=== PATIENT | female | born 1980 | race Caucasian/White ===

== ENCOUNTER 2016-05-31 00:09 | Emergency (ER) | payer OTHER ==
[2016-05-31 00:19] VITALS: BP 145/98
[2016-05-31] MEDS ORDERED: HYDROcodone/ACETAMIN 5-325 MG* 1 TAB PO ONE ×3 (00:57→01:18)
--- NOTE | 2016-05-31 01:05 | ED ---
Throat Pain/Nasal Congestion - HPI Summary HPI Summary: 35 female presents with complaints of dental pain that began approximately 1 week ago. Patient has a history of dental issues and poor dental hygiene. She has been taking increasing amounts of ibuprofen over the past week and has not had much relief. She tried calling her dentist today however was unable to go because she had a family emergency. She is calling the emergency line tomorrow and will be seen tomorrow or Thursday by dentist. Denies fever/chills, difficulty breathing, redness, swelling and discharge. - History of Current Complaint Chief Complaint: EDDentalPain Time Seen by Provider: 05/31/16 00:28 Hx Obtained From: Patient Onset/Duration: Sudden Onset, Lasting Weeks Severity: Severe - Allergies/Home Medications Allergies/Adverse Reactions: Allergies Allergy/AdvReac Type Severity Reaction Status Date / Time BEE STINGS Allergy Severe Hives Uncoded 12/20/13 08:21 PMH/Surg Hx/FS Hx/Imm Hx Endocrine/Hematology History: Denies: Hx Diabetes, Hx Thyroid Disease Cardiovascular History: Denies: Hx Hypertension Respiratory History: Denies: Hx Asthma, Hx Chronic Obstructive Pulmonary Disease (COPD) GI History: Denies: Hx Ulcer - Surgical History Surgery Procedure, Year, and Place: tonsils; colonoscopy. tonsilectomy Infectious Disease History: No Infectious Disease History: Denies: Hx Hepatitis, Hx Human Immunodeficiency Virus (HIV), History Other Infectious Disease, Traveled Outside the [place] in Last 30 Days - Family History Known Family History: Positive: None - Social History Alcohol Use: Rare Substance Use Type: Reports: None Smoking Status (MU): Never Smoked Tobacco Review of Systems Constitutional: Negative Eyes: Negative Positive: Dental Pain Cardiovascular: Negative Respiratory: Negative Skin: Negative Neurological: Negative All Other Systems Reviewed And Are Negative: Yes Physical Exam Triage Information Reviewed: Yes Vital Signs On Initial Exam: Initial Vitals Temp Pulse Resp BP Pulse Ox 97.8 F 61 18 145/98 99 05/31/16 00:13 05/31/16 00:13 05/31/16 00:13 05/31/16 00:13 05/31/16 00:13 Vital Signs Reviewed: Yes Appearance: Positive: Well-Appearing, Well-Nourished, Pain Distress - mild, holding left cheek Skin: Positive: Warm, Skin Color Reflects Adequate Perfusion, Dry Head/Face: Positive: Normal Head/Face Inspection Eyes: Positive: Conjunctiva Clear ENT: Positive: Hearing grossly normal, Pharynx normal, TMs normal Dental: Positive: Gross Decay/Caries @, Dental Fracture @, Other - appears to be an impacted wisdom tooth causing pain upper left. Negative: Percussion Tenderness @, Cervical Lymphadenopathy Neck: Positive: Supple, Nontender, No Lymphadenopathy Respiratory/Lung Sounds: Positive: Clear to Auscultation, Breath Sounds Present Cardiovascular: Positive: Normal, RRR, Pulses are Symmetrical in both Upper and Lower Extremities Neurological: Positive: Alert, Oriented to Person Place, Time Psychiatric: Positive: Normal Diagnostics - Vital Signs Vital Signs Temp Pulse Resp BP Pulse Ox 05/31/16 00:13 97.8 F 61 18 145/98 99 - Laboratory Lab Statement: Any lab studies that have been ordered have been reviewed, and results considered in the medical decision making process. EENT Course/Dx - Course Course Of Treatment: patient was given "fang-cane" topical anesthetic to apply to area of pain. she did get relief. will be given one to take home. also given norco with some to take home for pain until she is seen by dentist. she has not had any relief from OTC measures and is afraid it will continued use will effect her stomach. no sign of infection or abscess at this time therefore no need for antibiotics. patient does not appear to be a drug seeker. istop reference # #: [id number] - Differential Diagnoses Differential Diagnoses: Dental Abscess, Dental Caries, Fractured Tooth - Diagnoses Provider Diagnoses: Pain, dental, Impacted tooth Discharge - Discharge Plan Condition: Stable Disposition: HOME Patient Education Materials: Toothache (ED) Additional Instructions: Take medication as directed for pain. Use "Fang-cane" topical anesthetic to help soothe pain once daily. Be sure to dry the area of saliva before using. Make an appointment with your dentist to have problem fixed. If symptoms worsen or new symptoms develop such as redness, swelling, fever/chills please seek medical attention promptly and see your dentist.
== END 2016-05-31 01:43 | disposition home or self-care (01) ==
LOC: ED 00:09 → MERGE 00:09 → ED 01:43
DX: K08.89 Other specified disorders of teeth and supporting structures (principal); K01.1 Impacted teeth
CPT/HCPCS: 99282

== ENCOUNTER 2017-05-01 11:25 | Emergency (ER) | payer BC, OTHER ==
[2017-05-01 15:22] VITALS: BP 133/92
--- NOTE | 2017-05-01 15:31 | UC ---
Respiratory Complaint HPI - HPI Summary HPI Summary: c/o URI symptoms for a week, thinks she was infected with RSV diagnosed in her child. States she started having sharp pain on left side of face with green discharge and fever, continues with post nasal drip. - History of Current Complaint Chief Complaint: UCRespiratory Stated Complaint: SINUS ISSUE Time Seen by Provider: 05/01/17 15:22 Hx Obtained From: Patient Hx Last Menstrual Period: 05/01/2017 ?: No Onset/Duration: Gradual Onset, Lasting Days Timing: Constant Severity Initially: Mild Severity Currently: Moderate Pain Intensity: 3 Character: Cough: Nonproductive Aggravating Factors: Nothing Alleviating Factors: Nothing Associated Signs And Symptoms: Positive: Nasal Congestion, Sinus Discomfort - Risk Factors Pulmonary Embolism Risk Factors: Negative Cardiac Risk Factors: Negative Pseudomonas Risk Factors: Negative Tuberculosis Risk Factors: Negative - Allergies/Home Medications Allergies/Adverse Reactions: Allergies Allergy/AdvReac Type Severity Reaction Status Date / Time amoxicillin [From Augmentin] Allergy Vomiting Verified 05/01/17 15:13 clavulanic acid Allergy Vomiting Verified 05/01/17 15:13 [From Augmentin] BEE STINGS Allergy Severe Hives Uncoded 05/01/17 15:13 Home Medications: Home Medications Copper (Iud) [Paragard IUD] 1 unit IU DAILY 05/01/17 [History Confirmed 05/01/17 ] Loratadine & Pseudoephedrine [Claritin-D 12 Hour] 1 tab PO BID PRN 05/01/17 [ History Confirmed 05/01/17] PMH/Surg Hx/FS Hx/Imm Hx Previously Healthy: Yes - Surgical History Surgical History: Yes Surgery Procedure, Year, and Place: colonoscopy. tonsilectomy. precancerous mole removal x2 - Family History Known Family History: Positive: None - Social History Alcohol Use: Rare Substance Use Type: None Smoking Status (MU): Never Smoked Tobacco - Immunization History Most Recent Influenza Vaccination: dec 2012 Review of Systems Constitutional: Fever ENT: Sinus Congestion, Sinus Pain/Tenderness All Other Systems Reviewed And Are Negative: Yes Physical Exam Triage Information Reviewed: Yes Appearance: Well-Appearing Vital Signs: Initial Vital Signs Temp 99.1 F 05/01/17 15:16 Pulse 91 05/01/17 15:16 Resp 18 05/01/17 15:16 BP 133/92 05/01/17 15:16 Pulse Ox 98 05/01/17 15:16 Vital Signs Reviewed: Yes Eye Exam: Normal ENT: Positive: Hearing grossly normal, Pharynx normal, Nasal congestion, TMs normal, Sinus tenderness Dental Exam: Normal Neck exam: Normal Respiratory Exam: Normal Cardiovascular Exam: Normal UC Diagnostic Evaluation - Laboratory O2 Sat by Pulse Oximetry: 98 Respiratory Course/Dx - Course Course Of Treatment: start antibiotics as prescribed, fluid intake, nasal toileting with NS spray/solution - Differential Dx/Diagnosis Provider Diagnoses: acute frontal and maxillary sinusitis left side Discharge - Discharge Plan Condition: Stable Disposition: HOME Patient Education Materials: Sinusitis (ED) Referrals: Nydia Poon MD [Primary Care Provider] -
== END 2017-05-01 15:48 | disposition home or self-care (01) ==
LOC: UCEAST 11:25
DX: J01.00 Acute maxillary sinusitis, unspecified (principal); J01.10 Acute frontal sinusitis, unspecified
CPT/HCPCS: 99212; G0463

== ENCOUNTER 2017-06-02 06:40 | Day surgery (SDC) | payer BC ==
--- NOTE | 2017-05-27 18:45 | HP ---
PREOPERATIVE HISTORY AND PHYSICAL: DATE OF SURGERY/ADMISSION: 06/02/17 DATE OF OFFICE VISIT/ENCOUNTER: 05/13/17 ATTENDING SURGEON: Karen Grimaldo MD * (DICTATED BY MELO VALENTIN) PROCEDURE: Excision ganglion cyst, left wrist. CHIEF COMPLAINT: Cyst, left wrist. HISTORY OF PRESENT ILLNESS: This is a 36-year-old female who complains of a painful mass on the volar radial aspect of her left wrist that has been present for about a year or so. She saw a doctor in [facility], who recommended she headed with a book, so she has done that several times, but it keeps coming back. She rates her pain at this point as 7/10. She has a 7-month-old baby. She is fostering and she says her wrist is painful and inflamed. It is very difficult to pick the baby up. She is interested in having the mass surgically removed for more permanent solution to this problem. PAST MEDICAL HISTORY: 1. Sinusitis. 2. Anxiety. 3. History of recurrent kidney infections. 4. Back pain. PAST SURGICAL HISTORY: 1. Tonsillectomy. 2. Removal of a precancerous mole x2. CURRENT MEDICATIONS: 1. Alprazolam 0.5 mg 1 tab t.i.d. p.r.n. anxiety. 2. Fluticasone propionate 50 mcg act 2 sprays each nostril daily. 3. Multivitamin. 4. Tylenol Extra Strength 325 mg 2 tabs p.r.n. 5. Vitamin C as needed. 6. Paragard intrauterine copper contraceptive. ALLERGIES: CEFTIN and AUGMENTIN cause vomiting and diarrhea and LATEX. FAMILY MEDICAL HISTORY: Noncontributory. 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 She denies tobacco use and illicit drug use. She drinks alcohol on rare occasion. REVIEW OF SYSTEMS: General: Positive for weight gain and fatigue. Negative for fevers, chills, or night sweats. No known anesthesia problems. HEENT: Negative for headache, lightheadedness, or syncopal episodes. Integumentary: Negative for abrasions, lesions, or open wounds. Cardiothoracic: Negative for hypertension, chest pain, palpitations, or edema. Pulmonary: Positive for cough, sore throat, runny nose. GI: Negative for nausea, vomiting, diarrhea, constipation, or GERD. : Negative for nocturia, urinary frequency, urgency, history of UTIs, or kidney problems. Musculoskeletal: Positive for current complaint and chronic back pain. Neurological: Positive for anxiety. Negative for paresthesias, numbness, history of seizure, stroke, or epilepsy. Endocrine : Negative for diabetes and thyroid issues. Hematologic: Negative for easy bruising, anemia, excessive bleeding, history of DVT. Infectious Disease: Negative for history of MRSA, hepatitis C, HIV. PHYSICAL EXAMINATION GENERAL: Well-developed, well-nourished 36-year-old female, in no acute distress. VITAL SIGNS: Height 5 feet 4-3/4 inches, weight 167 pounds, pulse rate 80, blood pressure 118/62. HEENT: Normocephalic, atraumatic. Pupils are equal, round and reactive to light and accommodation. Extraocular movements are intact. NECK: Supple. No palpable lymph nodes. Throat is clear. CARDIOVASCULAR: Regular rate and rhythm. S1, S2. No murmurs, rubs, or gallops. No edema. PULMONARY: Lungs are clear to auscultation bilaterally. No wheezes, rales, or rhonchi. ABDOMEN: Positive bowel sounds, soft, nontender. NEUROLOGIC: Alert and oriented x3. Cranial nerves II through XII are intact. Sensation is intact to light touch. MUSCULOSKELETAL: On exam of her left wrist, there is a very small cystic mass on the volar radial aspect of the wrist. It is not pulsatile. She has good range of motion of her wrist in flexion and extension. She has a negative Tinel 's. Besides of the cyst, she can make a full fist. Skin is intact. Neurovascular function is intact. IMAGING STUDIES: X-rays AP, lateral and oblique of left wrist appear normal. IMPRESSION: Left wrist volar radial ganglion. PLAN: The patient is scheduled to undergo an excision ganglion cyst of left wrist with Dr. Grimaldo on 06/02/17. She will return to the office 10 days postop for followup and suture removal. A prescription for Ultracet was e-scribed to the patient's pharmacy for postoperative pain management. MELO VALENTIN [id number]/[facility] #: [id number] [facility] HOSPITALAnabelle
[~2017-06-02 06:40] MED LIST: Buffered Lidocaine 0.9% SYRIN* 5 ML/SYR SYRINGE INTRADERM ONE; Famotidine IV* 10 MG/ML 2 ML (20 mg) IV ONE
[2017-06-02] MEDS ORDERED: Lidocaine 1% INJ* 10 MG/ML 30 ML SDV ONE (07:19)
[2017-06-02] MEDS ORDERED: Midazolam* 1 MG/ML 2 ML VIAL (2 MG) ONE ×2 (07:20→07:54)
[2017-06-02] MEDS ORDERED: fentaNYL* 50 MCG/ML 2 ML VIAL (100 MCG VIAL) ONE (07:20)
[2017-06-02] MEDS ORDERED: Ketorolac INJ* 30 MG/ML 1 ML VIAL ONE (07:38)
[2017-06-02] MEDS ORDERED: Lidocaine 2% PF * 5 ML VIAL ONE (07:38)
[2017-06-02] MEDS ORDERED: Propofol* 10 MG/ML 20 ML BTL IV PUSH ONE (07:38)
[2017-06-02] MEDS ORDERED: Ondansetron INJ* 2 MG/ML VIAL ONE (07:38)
[2017-06-02] MEDS ORDERED: Acetaminophen TAB* 325 MG PO PRN (08:08)
[2017-06-02] MEDS ORDERED: DiMENhydriNATE IV* 50 MG/ML VIAL IV PUSH PRN (08:08)
[2017-06-02 08:25] VITALS: BP 119/76
--- NOTE | 2017-06-03 06:31 | OP ---
DATE OF OPERATION: 06/02/17 FOR[facility]LY [facility] DATE OF : 84 SURGEON: Karen Grimaldo MD SLOPE RUNNER: MELO Valenzuela ANESTHESIA: Local MAC. PRE-OP DIAGNOSIS: Left wrist ganglion. POST-OP DIAGNOSIS: Left wrist ganglion. OPERATIVE PROCEDURE: Removal of left wrist ganglion. INDICATIONS: Clotilde is a 36-year-old female with a painful mass on the volar radial aspect of her left wrist, she presents for removal. ESTIMATED BLOOD LOSS: Zero. TOURNIQUET TIME: About 15 minutes. DESCRIPTION OF PROCEDURE: The patient was brought to the operating room, was given a sedation anesthetic and local infiltration of 10 cc of 1% plain lidocaine. The skin of her left hand and forearm was prepped and draped in the usual sterile fashion. Hand and forearm were exsanguinated and the tourniquet elevated to 250 mmHg. A chevron incision was made centered over the mass and we dissected bluntly through the subcutaneous tissue. The radial artery was located and retracted away from the ganglion cyst. The cyst was traced with its stalk down to the radiocarpal joint capsule and removed with a small portion of the joint capsule. The edges of the capsule were cauterized with the Bovie. Hemostasis was achieved and then the wound was irrigated and the skin edges reapproximated with 4-0 nylon suture. The wound was dressed with Xeroform, 4x4, Webril, and an Mt wrap. The patient tolerated the procedure well and was brought to the recovery room in good condition. [id number]/[facility] #: [id number] MTDAnabelle
== END 2017-06-02 08:50 | disposition home or self-care (01) ==
LOC: OREAST 06:40
PROVIDERS: ATTEND Orthopaedic Surgery
DX: M67.432 Ganglion, left wrist (principal)
CPT/HCPCS: 81025; 88304; J1885; J2250; J2405; J2704; J3010

== ENCOUNTER 2018-01-25 08:44 | Emergency (ER) | payer BC ==
[2018-01-25 08:58] VITALS: BP 131/85
--- NOTE | 2018-01-25 10:05 | UC ---
Throat Pain/Nasal Yobani HPI - HPI Summary HPI Summary: 37-year-old woman comes in with 3 week history of sinus pressure and green rhinorrhea. Chest is some blood in the rhinorrhea. She has had a dry cough mild sore throat. No complaint of any ear pain or wheezing. She has been taking [id number] medications help some but overall she's getting worse. Have a history of recurrent sinusitis and also environmental allergies. She's taking Claritin and that did not help. - History of Current Complaint Chief Complaint: UCRespiratory Stated Complaint: SINUS COMPLAINT Time Seen by Provider: 01/25/18 09:56 Hx Last Menstrual Period: 05/01/2017 Pain Intensity: 7 - Allergies/Home Medications Allergies/Adverse Reactions: Allergies Allergy/AdvReac Type Severity Reaction Status Date / Time amoxicillin [From Augmentin] Allergy Vomiting Verified 01/25/18 08:58 clavulanic acid Allergy Vomiting Verified 01/25/18 08:58 [From Augmentin] latex Allergy Rash Verified 01/25/18 08:58 BEE STINGS Allergy Severe Hives Uncoded 01/25/18 08:58 nuts Allergy lip Uncoded 01/25/18 08:58 swelling PMH/Surg Hx/FS Hx/Imm Hx Previously Healthy: Yes - Surgical History Surgical History: Yes Surgery Procedure, Year, and Place: [place]ilectomy[place] precancerous [place] removal x2 - Family History Known Family History: Positive: None Negative: Diabetes - Social History Alcohol Use: Occasionally Alcohol Amount: 1 q 2 weeks Substance Use Type: None Smoking Status (MU): Never Smoked Tobacco - Immunization History Most Recent Influenza Vaccination: dec 2012 Review of Systems Constitutional: Negative Skin: Negative Eyes: Negative ENT: Sore Throat, Nasal Discharge, Sinus Congestion, Sinus Pain/Tenderness Respiratory: Negative Cardiovascular: Negative Gastrointestinal: Negative Motor: Negative Neurovascular: Negative Musculoskeletal: Negative Neurological: Negative Psychological: Negative Is Patient Immunocompromised?: No All Other Systems Reviewed And Are Negative: Yes Physical Exam Triage Information Reviewed: Yes Appearance: No Pain Distress, Well-Nourished, Ill-Appearing - mild Vital Signs: Initial Vital Signs Temp 98.2 F 01/25/18 08:54 Pulse 104 01/25/18 08:54 Resp 18 01/25/18 08:54 BP 131/85 01/25/18 08:54 Pulse Ox 98 01/25/18 08:54 Vital Signs Reviewed: Yes Eye Exam: Normal Eyes: Positive: Conjunctiva Clear ENT: Positive: Pharyngeal erythema, Nasal congestion, Nasal drainage, TMs normal Neck exam: Normal Neck: Positive: Supple, Nontender Respiratory Exam: Normal Respiratory: Positive: Lungs clear, Normal breath sounds, No respiratory distress Cardiovascular Exam: Normal Cardiovascular: Positive: RRR Musculoskeletal Exam: Normal Musculoskeletal: Positive: Strength Intact, ROM Intact Neurological Exam: Normal Neurological: Positive: Alert Psychological Exam: Normal Psychological: Positive: Age Appropriate Behavior Skin Exam: Normal Throat Pain/Nasal Course/Dx - Course Course Of Treatment: Patient reports that quite often she gets yeast infection if she takes antibiotics therefore I prescribed her a dose of Diflucan. - Differential Dx/Diagnosis Provider Diagnoses: sinusitis Discharge - Sign-Out/Discharge Documenting (check all that apply): Patient Departure All imaging exams completed and their final reports reviewed: No Studies - Discharge Plan Condition: Stable Disposition: HOME Prescriptions: Amoxicillin PO (*) [Amoxicillin 875 MG (*)] 875 mg PO BID #20 tab Fluconazole [Diflucan] 150 mg PO ONCE PRN #1 tablet PRN Reason: Pain Patient Education Materials: Sinusitis (ED) Referrals: Nydia Poon MD [Primary Care Provider] - Additional Instructions: FOLLOW UP WITH YOUR DOCTOR IF NOT COMPLETELY IMPROVED. GET RECHECKED FOR ANY WORSENING OF YOUR CONDITION OR QUESTIONS OR CONCERNS. - Billing Disposition and Condition Condition: STABLE Disposition: Home
== END 2018-01-25 10:09 | disposition home or self-care (01) ==
LOC: UCEAST 08:44
DX: J32.9 Chronic sinusitis, unspecified (principal); Z88.0 Allergy status to penicillin; Z91.030 Bee allergy status; Z91.040 Latex allergy status; Z91.018 Allergy to other foods
CPT/HCPCS: 99212; G0463

== ENCOUNTER 2018-03-21 17:45 | Emergency (ER) | payer BC ==
[2018-03-21 18:00] VITALS: BP 136/87
--- NOTE | 2018-03-21 18:34 | UC ---
Throat Pain/Nasal Yobani HPI - HPI Summary HPI Summary: Patient was treated for a sinus infection last week but could not finish the amoxicillin due to allergic symptoms. She is having a lot of sinus pressure, thought she may of had a fever and Headache - History of Current Complaint Chief Complaint: UCGeneralIllness Stated Complaint: SINUS Hx Obtained From: Patient Hx Last Menstrual Period: 05/01/2017 ?: No Onset/Duration: Gradual Onset, Lasting Weeks Severity: Moderate Pain Intensity: 7 Associated Signs & Symptoms: Positive: Dysphagia, Hoarseness, Sinus Discomfort, Nasal Discharge, Fever - Allergies/Home Medications Allergies/Adverse Reactions: Allergies Allergy/AdvReac Type Severity Reaction Status Date / Time amoxicillin [From Augmentin] Allergy Vomiting Verified 03/21/18 18:00 clavulanic acid Allergy Vomiting Verified 03/21/18 18:00 [From Augmentin] latex Allergy Rash Verified 03/21/18 18:00 BEE STINGS Allergy Severe Hives Uncoded 03/21/18 18:00 nuts Allergy lip Uncoded 03/21/18 18:00 swelling PMH/Surg Hx/FS Hx/Imm Hx Previously Healthy: Yes - Surgical History Surgical History: Yes Surgery Procedure, Year, and Place: [place]ilectomy, 2004[place] precancerous [place] removal x2 - Family History Known Family History: Positive: None Negative: Diabetes - Social History Alcohol Use: Occasionally Alcohol Amount: 1 q 2 weeks Substance Use Type: None Smoking Status (MU): Never Smoked Tobacco - Immunization History Most Recent Influenza Vaccination: dec 2012 Review of Systems All Other Systems Reviewed And Are Negative: Yes Constitutional: Positive: Fever Skin: Positive: Negative Eyes: Positive: Negative ENT: Positive: Sore Throat, Ear Ache, Nasal Discharge, Sinus Congestion, Sinus Pain/Tenderness Respiratory: Positive: Cough Cardiovascular: Positive: Negative Gastrointestinal: Positive: Negative Genitourinary: Positive: Negative Motor: Positive: Negative Neurovascular: Positive: Negative Musculoskeletal: Positive: Negative Neurological: Positive: Negative Psychological: Positive: Negative Is Patient Immunocompromised?: No Physical Exam Triage Information Reviewed: Yes Appearance: Well-Appearing, Well-Nourished, Pain Distress Vital Signs: Initial Vital Signs Temp 97.8 F 03/21/18 17:56 Pulse 81 03/21/18 17:56 Resp 16 03/21/18 17:56 BP 136/87 03/21/18 17:56 Pulse Ox 99 03/21/18 17:56 Vital Signs Reviewed: Yes Eye Exam: Normal ENT: Positive: Pharyngeal erythema, TM bulging, TM dull Dental Exam: Normal Neck exam: Normal Neck: Positive: Supple, Nontender, No Lymphadenopathy Respiratory: Positive: Chest non-tender, Lungs clear, Normal breath sounds Cardiovascular: Positive: RRR, No Murmur, Pulses Normal Abdominal Exam: Normal Abdomen Description: Positive: Nontender, No Organomegaly, Soft Musculoskeletal Exam: Normal Neurological Exam: Normal Psychological Exam: Normal Skin Exam: Normal Throat Pain/Nasal Course/Dx - Course Course Of Treatment: hx obtained, exam performed ,meds reveiwed, changed ABX for sinusitis - Differential Dx/Diagnosis Differential Diagnosis/HQI/PQRI: Otitis Media, Pharyngitis, Sinusitis, URI Provider Diagnosis: Sinusitis Discharge - Sign-Out/Discharge Documenting (check all that apply): Patient Departure All imaging exams completed and their final reports reviewed: No Studies - Discharge Plan Condition: Stable Disposition: HOME Prescriptions: Azithromyxin JESUS (NF) [Z-Jesus (Zithromax) 250 mg tabs #6] 2 tab PO .TODAY, THEN 1 DAILY #6 tab Patient Education Materials: Sinusitis (ED) Referrals: Nydia Poon MD [Primary Care Provider] - Additional Instructions: 1. take the medication as prescribed 2. Increase fluid intake and get plenty of rest - Billing Disposition and Condition Condition: STABLE Disposition: Home - Attestation Statements Provider Attestation: I was available for consult. This patient was seen by the CYNDY. The patient was not presented to , seen by or examined by vt -Michael Oneal MD
== END 2018-03-21 18:31 | disposition home or self-care (01) ==
LOC: UCCORT 17:45
DX: J32.9 Chronic sinusitis, unspecified (principal); Z88.0 Allergy status to penicillin; Z88.8 Allergy status to other drugs, medicaments and biological substances
CPT/HCPCS: 99212; G0463

== ENCOUNTER 2018-05-27 09:07 | Emergency (ER) | payer OTHER ==
[2018-05-27 09:25] VITALS: BP 131/90
--- NOTE | 2018-07-20 14:28 | UC ---
Respiratory Complaint HPI - HPI Summary HPI Summary: cough for one week. assoc w/ facial pain. - History of Current Complaint Chief Complaint: UCGeneralIllness Stated Complaint: COUGH RESP ISSUE Time Seen by Provider: 05/27/18 10:04 Hx Obtained From: Patient Hx From Patient Unobtainable Due To: Extremis Hx Last Menstrual Period: "states last month" Onset/Duration: Gradual Onset Pain Intensity: 0 Pain Scale Used: 0-10 Numeric Character: Cough: Nonproductive - Allergies/Home Medications Allergies/Adverse Reactions: Allergies Allergy/AdvReac Type Severity Reaction Status Date / Time latex Allergy Rash Verified 05/27/18 09:18 amoxicillin [From Augmentin] AdvReac Diarrhea Verified 05/27/18 09:18 clavulanic acid AdvReac Diarrhea Verified 05/27/18 09:18 [From Augmentin] BEE STINGS Allergy Severe Hives Uncoded 05/27/18 09:18 nuts Allergy lip Uncoded 05/27/18 09:18 swelling Home Medications: Home Medications Multivit-Min/Iron Fum/Folic AC [Multi Vitamin and Mineral] 1 tab PO DAILY [History Confirmed 05/27/18] PMH/Surg Hx/FS Hx/Imm Hx - Additional Past Medical History Additional PMH: no chronic conditions - Surgical History Surgical History: Yes Surgery Procedure, Year, and Place: [place] precancerous mole removal x2. ganglion cyst removed L wrist 2017 - Family History Known Family History: Positive: None Negative: Diabetes - Social History Alcohol Use: Occasionally Alcohol Amount: 1 q 2 weeks Substance Use Type: None Smoking Status (MU): Never Smoked Tobacco - Immunization History Most Recent Influenza Vaccination: dec 2012 Review of Systems All Other Systems Reviewed And Are Negative: Yes Constitutional: Positive: Negative Skin: Negative: Rash ENT: Positive: Sinus Congestion, Sinus Pain/Tenderness. Negative: Sore Throat Respiratory: Positive: Cough. Negative: Shortness Of Breath Cardiovascular: Positive: Negative Gastrointestinal: Positive: Negative Physical Exam Triage Information Reviewed: Yes Appearance: Well-Appearing Vital Signs: Initial Vital Signs Temp 98.6 F 05/27/18 09:19 Pulse 87 05/27/18 09:19 Resp 18 05/27/18 09:19 BP 131/90 05/27/18 09:19 Pulse Ox 97 05/27/18 09:19 Vital Signs Reviewed: Yes Eyes: Positive: Conjunctiva Clear ENT: Positive: TMs normal. Negative: Sinus tenderness Neck: Positive: Supple Respiratory Exam: Normal Cardiovascular Exam: Normal Neurological: Positive: Alert Respiratory Course/Dx - Course Course Of Treatment: Viral sinusitis w/ assoc. URI/cough. Pt. insisted on antibx so obliged after discussing side effects. return if not improving. vitals good. - Differential Dx/Diagnosis Differential Diagnosis/HQI/PQRI: Bronchitis, Sinusitis Provider Diagnosis: Sinusitis Discharge - Sign-Out/Discharge Documenting (check all that apply): Patient Departure All imaging exams completed and their final reports reviewed: No Studies - Discharge Plan Condition: Good Disposition: HOME Prescriptions: DOXYcycline CAP(*) [DOXYcycline 100MG CAP(*)] 100 mg PO BID 7 Days #14 cap Patient Education Materials: Sinusitis (ED) Referrals: Nydia Poon MD [Primary Care Provider] - Additional Instructions: please follow up with your primary care if not improving. - Billing Disposition and Condition Condition: GOOD Disposition: Home - Attestation Statements Provider Attestation: I was available for consult. This patient was seen by the CYNDY. The patient was not presented to, seen by, or examined by me. -Tejinder
== END 2018-05-27 10:18 | disposition home or self-care (01) ==
LOC: UCEAST 09:07
DX: J32.9 Chronic sinusitis, unspecified (principal); Z88.0 Allergy status to penicillin; Z88.1 Allergy status to other antibiotic agents; Z91.030 Bee allergy status; Z91.040 Latex allergy status; Z91.018 Allergy to other foods
CPT/HCPCS: 99212; G0463

== ENCOUNTER 2018-07-24 13:53 | Emergency (ER) | payer OTHER ==
--- OUTSIDE RECORDS SUMMARY | 2018-07-24 14:11 | XMS REPORT | Continuity of Care Document ---
:1980 External Reference #:[id number] Author Name Aliyah Vázquez Care Team Providers Name Role Phone Nydia Poon MD Primary Care Physician Unavailable Payers Date Identification Numbers Payment Provider Subscriber Policy Number: [id number] Willem Sha Irizarrylaura PayID: [id number] [address] [place] [address] Expires: 2018 Policy Number: [id number] BS Naresh Doty PayID: [id number] [address] [address] [place] [address] Effective: 2012 Policy Number: [id number] Maria Esther Mabry Radu Soren Expires: 2012 PayID: [id number] [address] [place] [address] Advance Directives Description No Information Available Problems Active Problems Provider Date Abnormal weight gain Fatimah Palma M.D. Onset: 12/13/2013 Disorder of lipid metabolism Fatimah Palma M.D. Onset: 12/13/2013 Non-neoplastic nevus Fatimah Palma M.D. Onset: 12/13/2013 Anxiety state Nydia Poon M.D. 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 Tobacco Use Start: Unknown Never Smoked Cigarettes Tobacco Use Start: Unknown Never Smoked Cigars Tobacco Use Start: Unknown Never Smoked A Pipe Smoking Status Reviewed: 07/21/18 Never Smoked A Pipe Smokeless Tobacco Never Used Smokeless Tobacco ETOH Use Rarely consumes alcohol 3 or less a week Tobacco Use Start: Unknown Patient has never smoked Exercise Exercises regularly Type/Frequency Allergies, Adverse Reactions, Alerts Active Allergies Reaction Severity Comments Date Bee Sting Urticaria Severe 10/19/2012 Latex skin irritation Mild 07/17/2016 Ceftin fevers, vomiting Severe 07/17/2016 Augmentin Stomach distress Moderate 07/17/2016 Coconut Allergenic Extract 06/14/2018 Hazelnut Oil 06/14/2018 Sesame Seed Extract 06/14/2018 Cinnamon Oil, Bark 06/14/2018 Inactive Allergies NKDA 10/19/2012 Medications Active Medications SIG Qnty Indications Ordering Provider Date Loratadine 1 by mouth every Unknown 10mg Tablets day History Medications Fluticasone 2 puffs each 16gm Leonel Villa, 06/28/2018 - Propionate nostril daily M.D. Unknown 50mcg/Act Suspension Zithromax Azithromyxin Jesus 6tabs Unknown 03/21/2018 - 250mg (Nf) 05/17/2018 Tablets Amoxicillin Twice Daily 20tabs Unknown 01/25/2018 - 875mg 03/24/2018 Tablets Diflucan Once 1tabs Unknown 01/25/2018 - 150mg 05/17/2018 Tablets Lamar one tab by mouth 10tabs Karen 06/03/2017 - 5-325mg Tablets every 6 hours as Chanda Grimaldo 05/18/2018 needed pain Tramadol 1 tab by mouth 15tabs Karen 05/13/2017 - Hydrochloride/Acetam every 4-6 hours as Chanda Grimaldo 05/18/2018 inophen needed pain 37.5-325mg Tablets Azithromycin one tablet once 3tabs J01.90 Blaise Quiros NP 05/07/2017 - 500mg daily x 3 days 05/10/2017 Tablets Fluticasone 2 sprays each 16units J01.90 Blaise Quiros NP 05/07/2017 - Propionate nostril qd as Unknown 50mcg/Act needed Suspension Alprazolam 1 PO tid prn 30tabs Nydia 06/14/2015 - 0.5mg anxiety Chanda Poon 05/18/2018 Tablets Mirena Unknown 01/11/2014 - 20mcg/24HR IUD 12/24/2015 Alprazolam 1-2 by mouth every 20tabs Carol Linh, 06/06/2013 - 0.25mg 8 hours as needed N.P. 06/14/2015 Tablets Vit C as needed Unknown - Unknown Multi Complete daily Unknown - Unknown Chewable Paragard good for 12 years Unknown - Intrauterine Copper placed 05/17/2018 Contraceptive T380a june 07, 2015 T380a IUD Magnesium 1 daily Unknown - 30mg 05/12/2017 Tablets Tylenol Extra 2 by mouth as Unknown - Strength needed Unknown 325mg Tablets Amoxicillin take one tablet by J01.10 Unknown - 875mg mouth twice a day 03/20/2017 Tablets x's 10 days Azithromycin 2 tabs by mouth on Unknown - 250mg day 1; 1 tab by 03/27/2018 Tablets mouth every day on days 2-5 Medications Administered in Office Medication SIG Qnty Indications Ordering Provider Date PPD Injection Nurse Visit A 07/16/2018 PPD Injection Nurse Visit A 06/20/2016 Immunizations CPT Code Status Date Vaccine Lot # [id number] Given 07/16/2018 Tdap - Tetanus/Diptheria/Acellular Pertussis [id number] Given 03/20/2017 Influenza Virus Vaccine, Quadrivalent, Split, [id number] Preservative Free Vital Signs Date Vital Result Comment 07/21/2018 2:49pm Height 65 inches 5'5" Weight 165.00 lb Heart Rate 62 /min BP Systolic 118 mmHg BP Diastolic 76 mmHg Body Temperature 98.0 F Pain Level 0 BMI (Body Mass Index) 27.5 kg/m2 06/28/2018 3:06pm Height 65 inches 5'5" Weight 165.00 lb Heart Rate 72 /min BP Systolic Sitting 120 mmHg BP Diastolic Sitting 88 mmHg Respiratory Rate 16 /min BMI (Body Mass Index) 27.5 kg/m2 06/14/2018 2:55pm Height 65 inches 5'5" Weight 169.00 lb BP Systolic Sitting 118 mmHg BP Diastolic Sitting 74 mmHg Respiratory Rate 16 /min Pain Level 4 constant BMI (Body Mass Index) 28.1 kg/m2 05/18/2018 1:10pm Height 65 inches 5'5" Weight 169.50 lb Heart Rate 83 /min BP Systolic 121 mmHg BP Diastolic 72 mmHg Body Temperature 98.3 F O2 % BldC Oximetry 96 % BMI (Body Mass Index) 28.2 kg/m2 07/30/2017 8:09am Heart Rate 89 /min BP Systolic 108 mmHg BP Diastolic 70 mmHg Respiratory Rate 16 /min Body Temperature 97.8 F Pain Level 2 07/09/2017 9:15am Heart Rate 80 /min BP Systolic 122 mmHg BP Diastolic 80 mmHg Respiratory Rate 16 /min Body Temperature 97.1 F 06/11/2017 9:04am Height 64.75 inches 5'4.75" Heart Rate 83 /min BP Systolic 124 mmHg BP Diastolic 80 mmHg Respiratory Rate 16 /min Body Temperature 97.0 F Pain Level 3 05/13/2017 1:14pm Height 64.75 inches 5'4.75" Weight 167.00 lb Heart Rate 80 /min BP Systolic Sitting 118 mmHg LA lg cuff BP Diastolic Sitting 62 mmHg LA lg cuff Pain Level 0 BMI (Body Mass Index) 28.0 kg/m2 05/07/2017 2:06pm Weight 167.00 lb Heart Rate 91 /min BP Systolic 126 mmHg BP Diastolic 86 mmHg Body Temperature 97.7 F O2 % BldC Oximetry 97 % 03/20/2017 3:30pm Height 65 inches 5'5" Weight 163.00 lb Heart Rate 94 /min BP Systolic 130 mmHg BP Diastolic 80 mmHg Body Temperature 97.9 F O2 % BldC Oximetry 97 % BMI (Body Mass Index) 27.1 kg/m2 Waist Circumference 38 07/17/2016 12:46pm Weight 155.38 lb Heart Rate 95 /min BP Systolic Sitting 110 mmHg BP Diastolic Sitting 90 mmHg Body Temperature 100.3 F O2 % BldC Oximetry 97 % 06/19/2016 4:41pm Weight 157.00 lb Heart Rate 61 /min BP Systolic Sitting 100 mmHg BP Diastolic Sitting 72 mmHg Body Temperature 98.3 F O2 % BldC Oximetry 97 % 12/24/2015 10:50am Height 64.5 inches 5'4.50" Weight 160.00 lb Heart Rate 78 /min BP Systolic 120 mmHg BP Diastolic 94 mmHg BP Systolic Sitting 134 mmHg BP Diastolic Sitting 104 mmHg O2 % BldC Oximetry 98 % BMI (Body Mass Index) 27.0 kg/m2 06/14/2015 2:02pm Height 65.25 inches 5'5.25" Weight 162.00 lb Heart Rate 82 /min BP Systolic Sitting 120 mmHg BP Diastolic Sitting 76 mmHg Respiratory Rate 16 /min Body Temperature 98.0 F O2 % BldC Oximetry 98 % BMI (Body Mass Index) 26.7 kg/m2 12/14/2014 1:05pm Height 65.25 inches 5'5.25" Weight 158.00 lb Heart Rate 69 /min BP Systolic Sitting 128 mmHg BP Diastolic Sitting 88 mmHg Body Temperature 98.5 F O2 % BldC Oximetry 98 % BMI (Body Mass Index) 26.1 kg/m2 11/25/2013 3:05pm Height 65.25 inches 5'5.25" Weight 169.25 lb Heart Rate 68 /min BP Systolic Sitting 124 mmHg BP Diastolic Sitting 80 mmHg Body Temperature 98.2 F BMI (Body Mass Index) 27.9 kg/m2 10/19/2012 1:00pm Height 65.5 inches 5'5.50" Weight 166.00 lb Heart Rate 76 /min BP Systolic Sitting 118 mmHg BP Diastolic Sitting 80 mmHg BMI (Body Mass Index) 27.2 kg/m2 Results Test Date Facility Test Result H/L Range Note Lipid Profile 05/12/2018 [facility] Triglycerides 246 mg/dL 1 (Trig/Chol/HDL) [address] [place] [address] [phone] Cholesterol 177 mg/dL 2 HDL Cholesterol 49.7 mg/dL 3 LDL Cholesterol 78 mg/dL 4 Laboratory test 05/12/2018 [facility] Glucose 83 mg/dL N 70- [address] [place] [address] [phone] Laboratory test 06/02/2017 [facility] Surgical SEE RESULT 5 , [address] [address] [phone] Laboratory test 03/18/2017 [facility] Glucose 76 mg/dL N 70- [address] [place] [address] [phone] Lipid Profile 03/18/2017 [facility] Triglycerides 140 mg/dL 7 (Trig/Chol/HDL) [address] [place], [place] [id number] [phone] Cholesterol 180 mg/dL 8 HDL Cholesterol 45.7 mg/dL 9 LDL Cholesterol 106 mg/dL 10 Ua Routine 06/19/2016 [employer] [facility] Ua Specific [place] 1.020 Ua PH 6 Ua Color yellow Ua Appera clear Ua WBC trace Ua Protein neg Ua Glucose neg Ua Ketones neg Ua Bilirubin neg Ua Urobilinogen normal Ua Nitrite neg Ua Occult Blood neg Lipid Profile 12/12/2015 [facility] Triglycerides 117 mg/dL N 11, 12 (Trig/Chol/HDL) [address] [place] [address] [phone] Cholesterol 178 mg/dL N 13 HDL Cholesterol 43.9 mg/dL N 14 LDL Cholesterol 111 mg/dL N 15 Laboratory test 12/12/2015 [facility] Glucose 85 mg/dL N 70- 100 16 finding [address] [place] [address] [phone] Lipid Profile 11/13/2014 [facility] Triglycerides 128 mg/dL N 17 (Trig/Chol/HDL) [address] [place] [address] [phone] Cholesterol 137 mg/dL N 18 HDL Cholesterol 35.8 mg/dL N 19 LDL Cholesterol 76 mg/dL N 20 Comp Metabolic Panel 11/13/2014 [facility] Sodium 138 mmol/L N 133-145 [address] [place] [address] [phone] Potassium 3.9 mmol/L N 3.5-5.0 Chloride 104 mmol/L N 101-111 Co2 Carbon Dioxide 27 mmol/L N 22-32 Anion Gap 7 mmol/L N 2-11 Glucose 88 mg/dL N 70-100 Blood Urea Nitrogen 9 mg/dL N 6-24 Creatinine 0.92 mg/dL N 0.51-0.95 BUN/Creatinine Ratio 9.8 N 8-20 Calcium 9.2 mg/dL N 8.6-10.3 Total Protein 6.8 g/dL N 6.4-8.9 Albumin 4.3 g/dL N 3.2-5.2 Globulin 2.5 g/dL N 2-4 Albumin/Globulin Ratio 1.7 N 1-3 Total Bilirubin 0.50 mg/dL N 0.2-1.0 Alkaline Phosphatase 56 U/L N 34-104 Alt 13 U/L N 7-52 Ast 15 U/L N 13-39 Egfr Non- 71.2 N >60 Egfr 91.6 N >60 21 Lipid Profile 11/17/2013 [facility] Triglycerides 245 mg/dL N 22, 23 (Trig/Chol/HDL) [address] [place] [address] [phone] Cholesterol 187 mg/dL N 24 HDL Cholesterol 42.7 mg/dL N 25 LDL Cholesterol 95 mg/dL N 26 Laboratory test 11/17/2013 [facility] Glucose 78 mg/dL N 70- 100 [address] [place] [address] [phone] Human Papilloma 10/20/2012 [facility] Human See Comment [address] [place] [address] Source [phone] Human Papillomavirus High Risk Negative Negative 29 GC/Chlamydia 10/19/2012 [facility] GC/Chlamydia Rna (SEE NOTE) 30 Amplified Rna [address] [place] [address] [phone] Laboratory test 10/19/2012 [facility] Cytology RUN DATE: [address] 10/21/ [place] [address] <SEE NOTE> [phone] Laboratory test 10/07/2012 [facility] Glucose 78 mg/dL 70-10 [address] [place] [address] [phone] Lipid Profile 10/07/2012 [facility] Triglycerides 177 mg/dL 40-20 (Trig/Chol/HDL) [address] [place] [address] [phone] Cholesterol 188 mg/dL Less than 200 HDL Cholesterol 49 mg/dL 40-60 33 Cholesterol/HDL Ratio 3.8 Average 1-4.44 LDL Cholesterol 103.6 High Less Than 100 34 1 Desirable: <150 Borderline High: 150-199 High: 200-499 Very High: >500 2 Desirable: <200 Borderline High: 200-239 High: >239 3 Low: <40 Desirable: 40-60 High: >60 4 Desirable: <100 Near Optimal: 100-129 Borderline High: 130-159 High: 160-189 Very High: >189 5 [id number] SEE RESULT BELOW Name: SHA DOTY : [address]: Karen Grimaldo MD Acct: [id number] Unit: [id number] AGE: 36 Location: [facility] Re06/02/17 SEX: F Status: DEP [facility] SPEC: [id number] ESTRADA: 06/02/17- [facility] DR: Karen Grimaldo MD REQ: [id number] RECD: 06/02/17 STATUS: SOUT _ ORDERED: LEVEL 3 COMMENTS: [id number] FINAL DIAGNOSIS Wrist, left, excision: -- Ganglion cyst. PRE-OPERATIVE DIAGNOSIS Left wrist ganglion cyst. GROSS DESCRIPTION The specimen is received in formalin labeled, Left Wrist Ganglion Cyst, and consists of a 2.1 by up to 1.2 x 0.3 cm dailey-red irregular rubbery wrinkled fibrous tissue fragment which is serially sectioned and dental sales representative sections are submitted in one cassette. Signed (signature on file) Fely Guido MD 10/14 1140 END OF REPORT DEPARTMENT OF PATHOLOGY, [address] [place] [address] Haroldo Braden M.D. Director [facility] # [id number] 7 Desirable: <150 Borderline High: 150-199 High: 200-499 Very High: >500 8 Desirable: <200 Borderline High: 200-239 High: >239 9 Low: <40 Desirable: 40-60 High: >60 10 Desirable: <100 Near Optimal: 100-129 Borderline High: 130-159 High: 160-189 Very High: >189 11 PT IS FASTING 12 Desirable <150 Borderline high 150-199 High 200-499 Very High >500 13 Desirable <200 Borderline high 200-239 High >239 14 Low <40 Desirable: 40-60 High: >60 15 Desirable: <100 mg/dL Near Optimal: 100-129 mg/dL Borderline High: 130-159 mg/dL High: 160-189 mg/dL Very High: >189 mg/dL 16 PT IS FASTING 17 Desirable <150 Borderline high 150-199 High 200-499 Very High >500 18 Desirable <200 Borderline high 200-239 High >239 19 Low <40 Desirable: 40-60 High: >60 20 Desirable: <100 mg/dL Near Optimal: 100-129 mg/dL Borderline High: 130-159 mg/dL High: 160-189 mg/dL Very High: >189 mg/dL 21 Because ethnic data is not always readily available, this report includes an eGFR for both -Americans and non- Americans. The National Kidney Disease Education Program (NKDEP) does not endorse the use of the MDRD equation for patients that are not between the ages of 18 and 70, are , have extremes of body size, muscle mass, or nutritional status, or are non- or non-. According to the National Kidney Foundation, irrespective of diagnosis, the stage of the disease is based on the level of kidney function: Stage Description GFR(mL/min/1.73 m(2)) 1 Kidney damage with normal or decreased GFR 90 2 Kidney damage with mild decrease in GFR 60-89 3 Moderate decrease in GFR 30-59 4 Severe decrease in GFR 15-29 5 Kidney failure <15 (or dialysis) 22 FASTING 12 HOUR 23 Desirable <150 Borderline high 150-199 High 200-499 Very High >500 24 Desirable <200 Borderline high 200-239 High >239 25 Low <40 Desirable: 40-60 High: >60 26 Desirable <100 Near Optimal 100-129 Borderline high 130-159 High 160-189 Very High >189 27 FASTING 12 HOUR 28 RESULT: Ectocervical/Endocervical 29 For types 16, 18, 31, 33, 35, 39, 45, 51, 52, 56, 58, 59 and 68. Test Performed by: [address] [address] Associate Professor Of English: Yury Carlton III, M.D. 30 RUN DATE: 10/22/12 [facility] LAB LIVE PAGE 1 RUN TIME: [address] [place] [address] Specimen Inquiry Name: SHA DOTY : [address]: Nydia Poon MD Acct: [id number] Unit: [id number] AGE: 31 Location: [facility] Re10/19/12 SEX: F Status: REG REF SPEC: [id number] ESTRADA: 10/19/12-[address]: Nydia Poon MD REQ: [id number] RECD: 10/19/12 STATUS: COMP _ SOURCE: ENDOCERVIX SPDESC: ORDERED: GC/Chlam RNA QUERIES: Medent Number [id number] Procedure Result Verified Site Chlamydia Trachomatis RNA Final 10/22/12- 1421 ML NEGATIVE for Chlamydia trachomatis rRNA GC (N. gonorrhoeae) RNA Final 10/22/12- 1416 ML NEGATIVE for Neisseria gonorrhoeae rRNA A negative result does not preclude the presence of a C. trachomatis or N. gonorrhoeae infection because results are dependent on adequate specimen collection, absence of inhibitors, and sufficient rRNA to be detected. Test results may be affected by improper specimen collection, improper storage, technical error, or specimen mixup. Limitations of the Procedure: The Aptima Combo 2 Assay is not intended for the evaluation of suspected sexual abuse or for other medico-legal indications. For those patients for whom a false positive result may have adverse psychosocial impact, the CDC recommends retesting by a method using an alternate technology. Therapeutic failure or success cannot be determined with the Aptima Combo 2 Assay since nucleic acid may persist following appropriate antimicrobial therapy. Results from the Aptima Combo 2 Assay should be interpreted in conjunction with other laboratory and clinical data available to the clinican. CONTINUED ON NEXT PAGE * ML=Testing performed at [facility] DEPARTMENT OF PATHOLOGY, [address] [place] [address] Haroldo Braden M.D. Director [facility] Permit #[id number] RUN DATE: 10/22/12 [facility] LAB LIVE PAGE 2 RUN TIME: [address] [place] [address] Specimen Inquiry Patient: SHA DOTY [id number] (Continued) Specimen: [id number] Collected: 10/19/12 Received: 10/19/12-1636 (Continued) Procedure Result Verified Site GC (N. gonorrhoeae) RNA Final (continued) 10/22/12- 1416 Performance characteristics for detecting C. trachomatis and N. gonorrhoeae are derived from high prevalence populations. Positive results in low prevalence populations should be interpreted carefully with the understanding that the likelihood of a false positive may be higher than a true positive. END OF REPORT * ML=Testing performed at Main Lab DEPARTMENT OF PATHOLOGY, [facility] [employer] [place], [place] [address] Haroldo Braden M.D. Director [facility] Permit #[id number] RUN DATE: 10/21/12 [facility] LAB LIVE PAGE 1 RUN TIME: [address] [place] [address] Specimen Inquiry Name: SHA DOTY : [address]: Nydia Poon MD Acct: [id number] Unit: [id number] AGE: 31 Location: [facility] Re10/19/12 SEX: F Status: REG REF SPEC: [id number] ESTRADA: 10/19/12-15 [facility] [address]: Nydia Poon MD REQ: [id number] RECD: 10/19/12-8074 STATUS: SOUT _ ORDERED: IMAGE ANALYSIS, HPV / Thin Prep FINAL DIAGNOSIS Negative for Intraepithelial lesion or Malignancy COMMENTS: Specimen sent to [facility] in [place], [place] on 10/21/12 by [id number] at 0809. Results will be reported separately. A. Ectocervical/Endocervical Specimen Adequacy: Satisfactory of evaluation Transformation zone component identified Patient Information: HPV: High risk HPV DNA testing regardless of pap results. Actual Specimen Date: 10/19/12 Last Menstrual Date: 10/11/12 Cautery: N IUD: N Lesion, grossly demonstrate: N ?: N Post Menopausal?: N Hysterectomy?: N Previous Abnormal Pap Smears?:N Signed (signature on file) YSABEL Ruff (ASCP) 10/21 0833 This Pap test was evaluated with the assistance of the Expert PlanetPrep Test Imaging System. Due to cytologic findings at the grief counselor microscope, comprehensive manual rescreening by a Manager Bench may be required. The Pap Smear is a screening test designed to aid in the detection of premalignant and malignant conditions of the uterine cervix. It is not a diagnostic procedure and should not be used as the sole means of detecting cervical cancer. Both false- positive and false- negative reports do occur. Depending on your risk status, a Pap smear shoudl be obtained and evaluated every 1-3 years. END OF REPORT * ML=Testing performed at Main Lab DEPARTMENT OF PATHOLOGY, [address] [place] [address] Haroldo Braden M.D. Director [facility] Permit #[id number] 32 FASTING 33 HDL Interpretation: Undesirable: High Risk: Less than 40 mg/dL Desirable: Low Risk: Greater than 60 mg/dL 34 LDL Interpretation: Low Risk Optimal Level: LDL Less than 100 mg/dL Near or Above Optimal: LDL 100-129 mg/dL Borderline High Risk: LDL 130-159 mg/dL High Risk: LDL 160-189 mg/dL Very High Risk: LDL Greater than 189 mg/dL Procedures Date Code Description Status 06/14/2018 91047 Nasal Endoscopy, Diagnostic Completed 05/18/2018 61049 Admin & Interp Of Health Risk Assessment w/ Patient Completed 06/02/2017 03520 Excision Ganglion Wrist/ Dorsal Or Volar; Primary Completed 06/02/2017 59688 Excision Ganglion Wrist/ Dorsal Or Volar; Primary Completed 03/20/2017 56654 Admin & Interp Of Health Risk Assessment w/ Patient Completed Encounters Type Date Location Provider Dx Diagnosis Office Visit 06/28/2018 [facility] Chronic sinusitis, 3:15p [facility]. unspecified Office Visit 06/14/2018 [facility]32.9 Chronic sinusitis, 2:45p [facility] AT [facility]. unspecified Office Visit 05/13/2017 Orthopedic Karen Grimaldo, M67.432 Ganglion, left 1:00p [facility] wrist Office Visit 05/07/2017 [facility] Blaise Quiros NP J01.90 Acute sinusitis , 2:00p Medicine unspecified Office Visit 03/20/2017 [facility] Nydia Z00.00 Encntr for general 3:00p Carol Poon M.D. adult medical exam w/o abnormal findings Z23 Encounter for immunization M67.432 Ganglion, left wrist Office Visit 07/17/2016 [facility] Meng Pack J01.10 Acute frontal 1:20p Medicine - [employer] [facility] [employer] sinusitis, [address] unspecified Office Visit 06/19/2016 [facility] Cait Stafford Z01.818 Encounter for other 4:20p Carol Poon M.D. preprocedural examination N62 Hypertrophy of breast D36.7 Benign neoplasm of other specified sites D17.1 Benign lipomatous neoplasm of skin, subcu of trunk Office Visit 12/24/2015 10:40a [facility] Nydia Z00.00 Encntr for Carol Poon M.D. general adult medical exam w/o abnormal findings F41.9 Anxiety disorder, unspecified R19.7 Diarrhea, unspecified R03.0 Elevated blood-pressure reading, w/o diagnosis of htn Z00.01 Encounter for general adult medical exam w abnormal findings Office Visit 06/14/2015 2:00p [facility] Nydia F41.9 Anxiety disorder, Carol Poon M.D. 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 General Medical Routine AT [facility] Care Facility 300.00 Anxiety State Unspec 238.2 Neoplasm Uncertain Skin V72.31 Routine Director Epidemiology Examination V76.2 Screening Malignant Neoplasm Cervix Plan of Treatment 07/21/2018 - Karen Grimaldo M.D.M67.432 Ganglion, left wristFollow up:Follow up: As needed
[2018-07-24] MEDS ORDERED: Ketorolac INJ* 30 MG/ML 1 ML VIAL IV PUSH ONE (14:14)
[2018-07-24] MEDS ORDERED: Morphine 4 MG/ML VIAL (1 ml) 4 MG/ML VIAL IV ONE (14:14)
[2018-07-24] MEDS ORDERED: Ondansetron INJ* 2 MG/ML VIAL IV ONE ×2 (14:15)
[2018-07-24 14:33] LABS: ABS Basophils 0.1 10^3/ul (0-0.2); ABS Eosinophils 0.2 10^3/ul (0-0.6); ABS Lymphocytes 2.1 10^3/ul (1.0-4.8); ABS Monocytes 1.3 10^3/ul (0-0.8); ABS Nucleated RBC 0 10^3/ul; Eosinophil % 0.8 %; Hematocrit 40 % (33-41); Hemoglobin 14.1 g/dL (12.0-16.0); Lymphocyte % 9.3 %; Mean Corpuscular HGB Conc 35 g/dL (31-36); Mean Corpuscular Hemoglobin 30 pg (27-31); Mean Corpuscular Volume 86 fL (80-97); Mean Platelet Volume 7.9 fL (7.4-10.4); Nucleated Red Blood Cells % 0; Platelet Count 312 10^3/uL (150-450); Red Blood Count 4.68 10^6 /uL (3.70-4.87); Red Cell Distribution Width 13 % (10.5-15); White Blood Count 22.7 10^3/uL (3.5-10.8)
[2018-07-24 14:38] LABS: INR 1.13 (0.82-1.09)
[2018-07-24 14:51] LABS: ALT 14 U/L (7-52); AST 15 U/L (13-39); Albumin 4.6 g/dL (3.2-5.2); Albumin/Globulin Ratio 1.4 (1-3); Alkaline Phosphatase 74 U/L (34-104); Anion Gap 7 mmol/L (2-11); BUN/Creatinine Ratio 11.9 (8-20); Blood Urea Nitrogen 10 mg/dL (6-24); C Reactive Protein 97.36 mg/L (<8.01); CO2 Carbon Dioxide 27 mmol/L (22-32); Calcium 9.4 mg/dL (8.6-10.3); Chloride 102 mmol/L (101-111); EGFR African American 93.4 (>60); EGFR Non-African American 77.2 (>60); Globulin 3.4 g/dL (2-4); Glucose 107 mg/dL (70-100); Potassium 3.9 mmol/L (3.5-5.0); Sodium 136 mmol/L (135-145)
--- NOTE | 2018-07-24 14:53 | ED ---
Abdominal Pain/Female - HPI Summary HPI Summary: This patient is a 37 year old female presenting to [facility] with a chief complaint of right sided abd pain since this morning. Patient states that the pain was sudden onset and woke her up in the morning. The pain is described as sharp and stabbing. Patient has a hx of ovarian cyst and says this feels familiar. The pain is intermittent, appearing occasionally, especially when aggravated. The pain is rated 9/10 in severity. Symptoms aggravated by movement. Symptoms alleviated by nothing. Patient denies any vaginal symptoms. - History of Current Complaint Chief Complaint: EDAbdPain Stated Complaint: PAIN IN OVARY AREA PER PT Time Seen by Provider: 07/24/18 14:13 Hx Obtained From: Patient Hx Last Menstrual Period: "states last month" Onset/Duration: Still Present Timing: Intermittent Episode Lasting Severity Currently: Severe Pain Intensity: 9 Pain Scale Used: 0-10 Numeric Location: Discrete At: RLQ Radiates: No Character: Sharp Aggravating Factor(s): Movement Alleviating Factor(s): Nothing Associated Signs and Symptoms: Positive: Negative - any vaginal symptoms Allergies/Adverse Reactions: Allergies Allergy/AdvReac Type Severity Reaction Status Date / Time latex Allergy Rash Verified 07/24/18 13:58 amoxicillin [From Augmentin] AdvReac Diarrhea Verified 07/24/18 13:58 clavulanic acid AdvReac Diarrhea Verified 07/24/18 13:58 [From Augmentin] BEE STINGS Allergy Severe Hives Uncoded 07/24/18 13:58 nuts Allergy lip Uncoded 07/24/18 13:58 swelling PMH/Surg Hx/FS Hx/Imm Hx Previously Healthy: No Endocrine/Hematology History: Reports: Hx Anemia - as a teen Denies: Hx Diabetes, Hx Thyroid Disease Cardiovascular History: Denies: Hx Hypertension, Other Cardiovascular Problems/Disorders Respiratory History: Reports: Other Respiratory Problems/Disorders - hx pneumonia Denies: Hx Asthma, Hx Chronic Obstructive Pulmonary Disease (COPD) GI History: Denies: Hx Ulcer, Other GI Disorders History: Reports: Hx Kidney Infection - chronic as a younger adult ok for 2- 3 years Musculoskeletal History: Denies: Other Musculoskeletal History Sensory History: Reports: Hx Contacts or Glasses - glasses Denies: Hx Hearing Aid Opthamlomology History: Reports: Hx Contacts or Glasses - glasses Neurological History: Reports: Hx Migraine Denies: Other Neuro Impairments/Disorders - Surgical History Surgery Procedure, Year, and Place: [place] precancerous [place] removal x2. ganglion cyst removed L wrist 2018 Hx Anesthesia Reactions: No Infectious Disease History: No Infectious Disease History: Denies: Hx Hepatitis, Hx Human Immunodeficiency Virus (HIV), History Other Infectious Disease, Traveled Outside the [place] in Last 30 Days - Family History Known Family History: Negative: Diabetes - Social History Alcohol Use: Occasionally Alcohol Amount: 1 q 2 weeks Hx Substance Use: No Substance Use Type: Reports: None, Prescribed Hx Tobacco Use: No Smoking Status (MU): Never Smoked Tobacco Review of Systems Negative: Fever Positive: Abdominal Pain Genitourinary: Negative - vaginal symptoms All Other Systems Reviewed And Are Negative: Yes Physical Exam - Summary Physical Exam Summary: Appearance: well appearing, mild pain distress Skin: warm, dry, reflects adequate perfusion Head/face: normal Eyes: EOMI, [place] ENT: mucous membranes moist Neck: supple, non-tender Respiratory: CTA, breath sounds present Cardiovascular: RRR, pulses symmetrical Abdomen:Moderate to severe rlq tenderness, Rebound tenderness, Positive rosvig s sign Bowel Sounds: present Musculoskeletal: normal, strength/ROM intact Neuro: normal, sensory motor intact, A&Ox3 Triage Information Reviewed: Yes Vital Signs On Initial Exam: Initial Vitals Temp Pulse Resp BP Pulse Ox 98.7 F 127 20 156/111 99 07/24/18 13:58 07/24/18 13:58 07/24/18 13:58 07/24/18 13:58 07/24/18 13:58 Vital Signs Reviewed: Yes Diagnostics - Vital Signs Vital Signs Temp Pulse Resp BP Pulse Ox 07/24/18 13:58 98.7 F 127 20 156/111 99 - Laboratory Lab Results: Lab Results 07/24/18 07/24/18 Range/Units 14:26 14:26 WBC 22.7 H (3.5-10.8) 10^3/uL RBC 4.68 (3.70-4.87) 10^6 /uL Hgb 14.1 (12.0-16.0) g/dL Hct 40 (33-41) % MCV 86 (80-97) fL MCH 30 (27-31) pg MCHC 35 (31-36) g/dL RDW 13 (10.5-15) % Plt Count 312 (150-450) 10^3/uL MPV 7.9 (7.4-10.4) fL Neut % (Auto) 83.6 % Lymph % (Auto) 9.3 % [place] % (Auto) 5.9 % Eos % (Auto) 0.8 % Baso % (Auto) 0.4 % Absolute Neuts (auto) 19.0 H (1.5-7.7) 10^3/ul Absolute Lymphs (auto) 2.1 (1.0-4.8) 10^3/ul Absolute Monos (auto) 1.3 H (0-0.8) 10^3/ul Absolute Eos (auto) 0.2 (0-0.6) 10^3/ul Absolute Basos (auto) 0.1 (0-0.2) 10^3/ul Absolute Nucleated RBC 0 10^3/ul Nucleated RBC % 0 INR (Anticoag Therapy) 1.13 H (0.82-1.09) Result Diagrams: 07/24/18 14:26 07/24/18 14:26 Lab Statement: Any lab studies that have been ordered have been reviewed, and results considered in the medical decision making process. - CT CT Abd/Pel CT Interpretation Completed By: Radiologist Summary of CT Findings: CT Abd/Pel reveals, per radiologist, IMPRESSION: NORMAL APPENDIX. RIGHT OVARIAN CYSTS. ED physician has reviewed this radiology report. - Additional Comments Diagnostic Additional Comments: US Pelvis reveals, per radiologist, IMPRESSION: RIGHT OVARIAN CYSTS MEASURING UP TO 5.5 CM. NO SONOGRAPHIC FEATURES OF TORSION. PLEASE NOTE THAT PARTIAL OR INTERMITTENT TORSION MAY BE SONOGRAPHICALLY NORMAL. ED physician has reviewed this radiology report. Abdominal Pain Fem Course/Dx - Course Course Of Treatment: Patient with a history of endometriosis and ovarian cyst presents with abrupt onset of right lower quadrant pain. Ultrasound shows no torsion but to ovarian cyst. CT was performed given her peritoneal sign. This is negative for appendicitis. There is no free fluid in the abdomen. Her pain was much improved here and she was able to be discharged home in good condition. - Diagnoses Differential Diagnosis: Positive: Appendicitis, Ectopic , Ovarian Cyst , Pelvic Inflammatory Disease, Renal Colic, Urinary Tract Infection Provider Diagnoses: Ovarian cyst, Hx of endometriosis Discharge - Sign-Out/Discharge Documenting (check all that apply): Patient Departure Patient Received Moderate/Deep Sedation with Procedure: No - Discharge Plan Condition: Stable Disposition: HOME Prescriptions: Acetaminop/Codeine 30 MG TAB* [Tylenol/Codeine 30 MG TAB*] 1 tab PO Q6H PRN #12 tab MDD 4 PRN Reason: more severe pain Patient Education Materials: Endometriosis (ED), Ovarian Cyst (ED) Referrals: Nydia Poon MD [Primary Care Provider] - Additional Instructions: Call your [facility] [facility] on Thursday to schedule prompt follow-up. Return with uncontrolled pain, lightheadedness/passing out, fever, vomiting, worse, new symptoms or other concerns. Stool softener with pain medicine. Take ibuprofen for baseline pain. - Billing Disposition and Condition Condition: STABLE Disposition: Home - Attestation Statements Document Initiated by Scribe: Yes Documenting Scribe: Ric Jesus Provider For Whom Candelario is Documenting (Include Credential): Diego Abraham MD Scribe Attestation: Ric Thrasher scribed for Diego Abraham MD on 07/24/18 at 1833. Scribe Documentation Reviewed: Yes Provider Attestation: The documentation as recorded by the Ric garland accurately reflects the service I personally performed and the decisions made by , Diego Abraham MD Status of Scribe Document: Viewed
[2018-07-24 14:57] LABS: HCG Pregnancy < 0.60 mIU/mL
[2018-07-24] MEDS ORDERED: Iohexol 300* (CONTRAST) 10 ML SDV IV ONE (15:29)
[2018-07-24 16:37] VITALS: BP 130/90
== END 2018-07-24 16:36 | disposition home or self-care (01) ==
LOC: ED 13:53
DX: N83.201 Unspecified ovarian cyst, right side (principal); N80.9 Endometriosis, unspecified; Z88.3 Allergy status to other anti-infective agents; Z91.040 Latex allergy status; Z87.01 Personal history of pneumonia (recurrent)
CPT/HCPCS: 36415; 74177; 76856; 80053; 83605; 83690; 84702; 85025; 85610; 86140; 96374; 96375; 99283; J1885; J2270; J2405; Q9967

== ENCOUNTER → 2019-05-06 06:48 | Day surgery (SDC) | payer OTHER ==
[~2019-05-06 06:48] MED LIST changes: -Buffered Lidocaine 0.9% SYRIN* 5 ML/SYR SYRINGE INTRADERM ONE; +Buffered Lidocaine 1% SYRIN* 1 ML/SYRINGE INTRADERM ONE; +Bupivacaine 0.25% SDV* 30 ML ONE; +Dexamethasone IV* 4 MG/ML 1 ML (4 MG) IV SLOW PU ONE; +Dexamethasone IV* 4 MG/ML 1 ML (4 MG) ONE; +DiMENhydriNATE IV* 50 MG/ML VIAL IV PUSH ONE; +DiMENhydriNATE IV* 50 MG/ML VIAL ONE; +Famotidine IV* 10 MG/ML 2 ML (20 mg) ONE; +HYDROcodone/ACETAMIN 5-325 MG* 1 TAB PO PRN; +Ketorolac INJ* 30 MG/ML 1 ML VIAL ONE; +Lactated Ringers 1000 ML Bag* 1,000 ML IV SCH; +Lidocaine 2% PF * 5 ML VIAL ONE; +Midazolam* 1 MG/ML 5 ML VIAL (5 MG) ONE; +Naloxone* 0.4 MG/ML 1 ML VIAL IV PRN; +Ondansetron INJ* 2 MG/ML VIAL ONE; +PROCHLORPERAZINE INJ 5 MG/ML 2 ML VIAL IV PRN; +Propofol* 10 MG/ML 20 ML BTL ONE; +Rocuronium* 10 MG/ML VIAL ONE; +Sugammadex * 200 MG/2 ML VIAL IV PUSH ONE; +fentaNYL* 50 MCG/ML 2 ML VIAL (100 MCG VIAL) IV PRN; +fentaNYL* 50 MCG/ML 5 ML VIAL (250 MCG VIAL) ONE; +oxyCODONE/Acetamin 5/325 MG* TAB PO PRN
[2019-05-06 10:53] VITALS: BP 124/77
--- NOTE | 2019-05-08 04:21 | OP ---
DATE OF OPERATION: 05/06/19 [facility] DATE OF : 84 SURGEON: Valarie Ross MD [employer] ATTORNEY: Porfirio Dubois DO ANESTHESIOLOGIST: Dr. Lewis. ANESTHESIA: General endotracheal. PRE-OP DIAGNOSES: Right ovarian cyst, pelvic pain, and clinical endometriosis. POST-OP DIAGNOSES: Right endometrioma, pelvic adhesions, and pelvic endometriosis. OPERATIVE PROCEDURE: Laparoscopic right ovarian cystectomy and lysis of adhesions. ESTIMATED BLOOD LOSS: Minimal. URINE OUTPUT: 200 cc. IV FLUIDS: 1200 cc lactated Ringer's. MATERIALS TO LAB: Right ovarian cyst wall. INDICATIONS: This patient is a 38-year-old, 0, with a long history of dysmenorrhea, primarily controlled with oral pain medications. The patient presented to my office and was noted to have an approximately 4 cm complex right ovarian cyst, which appeared consistent with an endometrioma. The patient had been having fairly persistent right and left pelvic pain and dysmenorrhea. After discussion, the patient desired to proceed with surgical evaluation and treatment, and removal of the cyst. She was extensively counseled and consent was signed. FINDINGS: Uterus appeared normal. Left fallopian tube and ovary appeared normal, however, with some adhesions especially in the posterior cul-de-sac and ovarian fossa. The right fallopian tube also appeared normal, but the right ovary was markedly enlarged about 5 to 6 cm in the largest dimension and fairly firmly affixed in the pelvis with adhesions. Opening the right ovary resulted in dark brown fluid contents consistent with an endometrioma. Endometriosis was also visualized at several sites throughout the pelvic peritoneum, but not visualized on the bowel. COMPLICATIONS: None. DESCRIPTION OF PROCEDURE: The risks, benefits, and alternatives were described to the patient and informed consent was obtained. The patient was taken to the operating room with IV running where general anesthesia was induced and found to be adequate. The patient was prepped and draped in the normal sterile fashion in the high lithotomy position in [facility]. A time-out was performed. A Almanzar catheter was placed. A bivalve speculum was placed in the vagina and a Hulka tenaculum was placed on the cervix. The speculum was then removed. The patient was then returned to a low lithotomy position and gloves were changed. Attention was turned to the abdomen. 0.25% Marcaine was then injected into the umbilicus. Penetrating towel clamps were placed on either sides of the umbilicus to elevate the skin. A 5-mm bladeless trocar was then placed through the incision and into the peritoneal cavity under direct visualization with the laparoscope. The abdomen was then insufflated with carbon dioxide gas to a maximum pressure of 15 mmHg. 0.25% Marcaine was injected into the patient's left and right lower quadrants as well and after making a 5-mm skin incision, 5 mm bladeless trocars were placed into each of those sides as well. The patient was placed in a Trendelenburg position. The bowel was swept out of the pelvis with a blunt grasper and the uterus was able to be manipulated with Hulka tenaculum. The findings are noted above. The appendix was not visualized. The right ovary was palpated using laparoscopic instruments and on the medial surface, the laparoscopic darshan were used to cauterize a length of the tissue and then incise it allowing a suction demolition expert to be placed into the cyst and evacuated. This incision was extended again using cautery and sharp dissection until the entire ovary seemed to have been drained. A simple cyst was also drained. Bleeding was minimal at that time. The cyst wall was then peeled off using [place] graspers and also a portion of it was excised using the darshan. This was removed and sent off as a specimen. In the left adnexa, there were some bands of adhesions from the left ovary to the pelvic wall. These were well visualized and away from any important structures, so the band was cauterized and taken down using the darshan. The ovaries had fairly good mobility at that time. The posterior cul-de-sac was noted to have a moderate amount of scarring as well. At that time, there was excellent hemostasis present. Photographs were taken of several sites within the pelvis and endometriosis was well documented. The gas was allowed to escape from the abdomen. The ports were then all removed from the abdomen and the patient was placed in the flat position. The left and right incisions were reapproximated using 4-0 Monocryl in a subcuticular stitch. All 3 incisions were then covered with DermaFlex skin adhesive. The Hulka tenaculum was then removed from the cervix and the patient was returned to the supine position. The patient tolerated the procedure well. Sponge, lap, and needle counts were correct x2. [id number]/CPS #: [id number] [place]
== END | disposition home or self-care (01) ==
LOC: OR 06:48
PROVIDERS: ATTEND Obstetrics & Gynecology
DX: N80.1 Endometriosis of ovary (principal); R10.2 Pelvic and perineal pain; N73.6 Female pelvic peritoneal adhesions (postinfective); Z88.1 Allergy status to other antibiotic agents
CPT/HCPCS: 81025; 88305; J1100; J1240; J1885; J2250; J2405; J2704; J3010; J3490